=== PATIENT | female | born 1960 | race Caucasian/White ===

== ENCOUNTER 2018-04-09 05:40 | Outpatient (CLI) | payer BC ==
[~2018-04-09] VITALS: Ht 170.2 cm; Wt 66.7 kg
== END 2018-04-09 11:13 ==
LOC: PREOP 05:40
PROVIDERS: ATTEND Otolaryngology Otolaryngology/Facial Plastic Surgery
DX: Z01.818 Encounter for other preprocedural examination (principal); J32.4 Chronic pansinusitis

== ENCOUNTER 2018-04-12 06:49 | Day surgery (SDC) | payer BC ==
[~2018-04-12] VITALS: Ht 170.2 cm; Wt 66.7 kg
[2018-04-12] MEDS ORDERED: COCAINE HCL 4% 2 ML SYR ONE (07:01)
[2018-04-12] MEDS ORDERED: PHENYLEPHRINE 0.5% NASAL SPR (NEO-SYNEPHRINE) REG ONE (07:01)
[2018-04-12] MEDS ORDERED: BSS 15 ML ONE (07:01)
[2018-04-12] MEDS ORDERED: LIDOCAINE/EPI 1%-1:200,000 (XYLOCAINE) 10 ML VIAL ONE (07:01)
[2018-04-12 07:15] VITALS: BP 117/79
[2018-04-12] MEDS ORDERED: HYDROCORTISONE 100 MG/2 ML (Solu-CORTEF) VIAL IV ONE (07:30)
[2018-04-12] MEDS ORDERED: AMPICILLIN/SULBACTAM INJECTION 1.5 GM in NS (IVPB) 100 ML IV ONE (07:30)
[2018-04-12] MEDS: LACTATED RINGERS 1,000 ML IV PRN ×3 (07:37→11:05)
[2018-04-12 07:56] LABS: BASOPHILS % (AUTO) 0 % (0-10); EOSINOPHILS # (AUTO) 0.1 10^3/uL (0.0-0.3); EOSINOPHILS % (AUTO) 1 % (0-10); HEMATOCRIT 40 % (35-52); HEMOGLOBIN 13.9 G/DL (11.5-16.0); LYMPHOCYTES # (AUTO) 2.1 X 10^3 (1.0-4.0); LYMPHOCYTES % (AUTO) 32 % (12-44); MEAN CORPUSCULAR HEMOGLOBIN 31 PG (25-34); MEAN CORPUSCULAR HGB CONC 35 G/DL (32-36); MEAN CORPUSCULAR VOLUME 90 FL (80-99); MEAN PLATELET VOLUME 9.7 FL (7.4-10.4); MONOCYTES # (AUTO) 0.6 X 10^3 (0.0-1.0); MONOCYTES % (AUTO) 9 % (0-12); NEUTROPHILS # (AUTO) 3.8 X 10^3 (1.8-7.8); NEUTROPHILS % (AUTO) 57 % (42-75); PLATELET COUNT 227 10^3/uL (130-400); RED BLOOD COUNT 4.45 10^6/uL (4.35-5.85); RED CELL DISTRIBUTION WIDTH 12.8 % (10.0-14.5); WHITE BLOOD COUNT 6.6 10^3/uL (4.3-11.0)
[2018-04-12 08:14] LABS: BUN/CREATININE RATIO 22; CALCIUM 8.8 MG/DL (8.5-10.1); CARBON DIOXIDE 24 MMOL/L (21-32); CHLORIDE 107 MMOL/L (98-107); CREATININE SERUM 0.81 MG/DL (0.60-1.30); GFR ESTIMATED > 60; GLUCOSE 92 MG/DL (70-105); POTASSIUM 3.6 MMOL/L (3.6-5.0); SODIUM 141 MMOL/L (135-145)
[2018-04-12] MEDS ORDERED: MIDAZOLAM 2 MG/2 ML (VERSED) VIAL ONE (08:33)
[2018-04-12] MEDS ORDERED: SEVOFLURANE (ULTANE) 15 ML INHAL SOLN ONE ×3 (08:33→10:03)
[2018-04-12] MEDS ORDERED: ONDANSETRON 4 MG/2 ML (SDV) Z0FRAN ONE (08:33)
[2018-04-12] MEDS ORDERED: fentaNYL INJECTION 100 MCG/2 ML AMP ONE (08:33)
[2018-04-12] MEDS ORDERED: DEXAMETHASONE 10 MG/ML (DECADRON) 1 ML VIAL ONE (08:33)
[2018-04-12] MEDS ORDERED: LIDOCAINE PF 2% 5 ML (XYLOCAINE) VIAL ONE (08:33)
[2018-04-12] MEDS ORDERED: proPOfol 200 MG/20 ML (DIPRIVAN) VIAL IV ONE (08:33)
[2018-04-12] MEDS ORDERED: ROCURONIUM 10 MG/ML 5 ML SYRINGE IV ONE (08:33)
--- NOTE | 2018-04-12 08:51 | Progress Note-Pre Operative ---
Pre-Operative Progress Note H&P Reviewed The H&P was reviewed, patient examined and no changes noted. Date Seen by Provider: Apr 12, 2018 Time Seen by Provider: 08:30 Date H&P Reviewed: Apr 12, 2018 Time H&P Reviewed: 08:30 Pre-Operative Diagnosis: Bilat Chronic Sinusitis, Dev Septum, Bilat Red of Inf Turbs EMERITA REYNA MD Apr 12, 2018 8:51 am
[2018-04-12] MEDS ORDERED: GLYCOPYRROLATE 0.2 MG/ML (ROBINUL) 2 ML VIAL ONE ×2 (09:05→10:03)
[2018-04-12] MEDS ORDERED: PHENYLEPHRINE 100 MCG/ML 10 ML (ANESTHESIA) SYR ONE (09:05)
[2018-04-12] MEDS ORDERED: NEOSTIGMINE 1 MG/ML 5 ML SYRINGE ONE (10:03)
[2018-04-12] MEDS ORDERED: D5 1/2 NS W/KCL 20 MEQ/L 1,000 ML IV SCH (10:36)
--- NOTE | 2018-04-12 10:36 | Progress Note-Post Operative ---
Post-Operative Progess Note Surgeon (s)/Data Warehousing Specialist (s) Surgeon EMERITA REYNA MD Data Warehousing Specialist n/a Pre-Operative Diagnosis Bilat Chronic Sinusitis, Dev Septum, Bilat Red of Inf Turbs Post-Operative Diagnosis same Post-Op Procedure Note Date of Procedure: Apr 12, 2018 Name of Procedure Performed: Bilat Ess, Deviatead Septum, Bilat Red of Inf Turbs Description & Findings Description and Findings: n/a Anesthesia Type get Estimated Blood Loss minimal Packing dnp Specimen(s) collected/removed chirnc bilat sinusitis, septum EMERITA REYNA MD Apr 12, 2018 10:36 am
[2018-04-12] MEDS ORDERED: ACETAMINOPHEN 325 MG TABLET PO PRN (10:45)
[2018-04-12] MEDS ORDERED: PROMETHAZINE INJ 25 MG/ML (PHENERGAN) AMP IVP PRN ×2 (10:45→11:00)
[2018-04-12] MEDS ORDERED: HYDROcodone/APAP 5 MG/325 MG (LORTAB) TAB PO PRN (10:45)
[2018-04-12] MEDS ORDERED: predniSONE 20 MG TAB PO ONE (10:45)
[2018-04-12] MEDS ORDERED: HYDROmorphone 1 MG/ML (DILAUDID) 1 ML SYRINGE IV PRN (11:00)
[2018-04-12] MEDS ORDERED: ONDANSETRON 4 MG/2 ML (SDV) Z0FRAN IVP PRN (11:00)
[2018-04-12] MEDS ORDERED: fentaNYL INJECTION 100 MCG/2 ML AMP IVP PRN (11:00)
[2018-04-12 11:35] VITALS: BP 126/84
[2018-04-12 12:05] VITALS: BP 118/82
[2018-04-12] MEDS ORDERED: HYDR-3812 PO (12:09)
[2018-04-12] MEDS ORDERED: PRD20T PO (12:09)
[2018-04-12] MEDS ORDERED: AMOX-355 PO (12:09)
[2018-04-12 12:35] VITALS: BP 124/79
[2018-04-12 12:45] VITALS: BP 124/79
--- NOTE | 2018-04-12 13:43 | Anesthesia-General Post-Op ---
General Patient Condition Mental Status/LOC: Same as Preop Cardiovascular: Satisfactory Nausea/Vomiting: Absent Respiratory: Satisfactory Pain: Controlled Complications: Absent Post Op Complications Complications None Follow Up Care/Instructions Patient Instructions None needed. Anesthesia/Patient Condition Patient Condition Patient is doing well, no complaints, stable vital signs, no apparent adverse anesthesia problems. No complications reported per nursing. ISSAC FRANKLIN CRNA Apr 12, 2018 13:43
== END 2018-04-12 12:45 | disposition home or self-care (01) ==
LOC: SDC 06:49
PROVIDERS: ATTEND Otolaryngology Otolaryngology/Facial Plastic Surgery
DX: J32.2 Chronic ethmoidal sinusitis (principal); J32.0 Chronic maxillary sinusitis; J34.2 Deviated nasal septum; J34.3 Hypertrophy of nasal turbinates
CPT/HCPCS: 36415; 80048; 85025; 87081; 93005